=== PATIENT | male | born 1965 | race Caucasian/White ===

== ENCOUNTER 2017-07-04 10:09 | Emergency (ER) | payer OTHER ==
[2017-07-04 10:29] VITALS: BP 137/82
--- NOTE | 2017-07-04 10:52 | UC ---
Throat Pain/Nasal Antwon HPI - HPI Summary HPI Summary: Patient presents with a childhood history of strep throat. He presents today with two day onset of throat pain, fever, generalized body aches and chills. He states Friday night he got up and felt pain on the right side of her throat, and his symptoms has gotten worse since. He has not taken any Advil or Tylenol today. He states he is able to eat and drink but it is painful. He denies any chest pain, dyspnea, abdominal pain, nausea, vomiting or diarrhea. - History of Current Complaint Chief Complaint: UCGeneralIllness Stated Complaint: SORE THROAT, AND EAR ACHE Time Seen by Provider: 07/04/17 10:34 Hx Obtained From: Patient Onset/Duration: Gradual Onset, Lasting Days Severity: Moderate Cough: None Associated Signs & Symptoms: Positive: Fever - Epiglottits Risk Factors Epiglottis Risk Factors: Muffled Voice - Allergies/Home Medications Allergies/Adverse Reactions: Allergies Allergy/AdvReac Type Severity Reaction Status Date / Time Tetracycline Allergy DIZZY Verified 07/04/17 10:29 PMH/Surg Hx/FS Hx/Imm Hx Previously Healthy: Yes - Surgical History Surgical History: Yes Surgery Procedure, Year, and Place: 3 [place] [id number][place] [facility] [place], LEFT FOOT PLANTAR FASCIITIS SURGERY - Family History Known Family History: Positive: None - Social History Occupation: Employed Full-time Lives: Alone Alcohol Use: None Substance Use Type: None Smoking Status (MU): Never Smoked Tobacco Household Exposure Type: Cigarettes - Immunization History Most Recent Influenza Vaccination: 06/2017 Review of Systems Constitutional: Fever, Chills Skin: Negative Eyes: Negative ENT: Sore Throat, Ear Ache Respiratory: Negative Cardiovascular: Negative Gastrointestinal: Negative Genitourinary: Negative Motor: Negative Neurovascular: Negative Musculoskeletal: Negative Neurological: Negative All Other Systems Reviewed And Are Negative: Yes Physical Exam Triage Information Reviewed: Yes Appearance: Ill-Appearing Vital Signs: Initial Vital Signs Temp 102.2 F 07/04/17 10:24 Pulse 125 07/04/17 10:24 Resp 20 07/04/17 10:24 BP 137/82 07/04/17 10:24 Pulse Ox 98 07/04/17 10:24 Vital Signs Reviewed: Yes Eye Exam: Normal ENT Exam: Normal ENT: Positive: Pharyngeal erythema, Tonsillar swelling, Tonsillar exudate, Muffled voice, Uvula midline Neck exam: Normal Neck: Positive: 1 Respiratory Exam: Normal Cardiovascular Exam: Normal Abdominal Exam: Normal Psychological Exam: Normal Skin Exam: Normal Throat Pain/Nasal Course/Dx - Course Course Of Treatment: Patient presents with two day onset sore throat, fever. His clinical findings are consistent with strep throat. His VS reveal fever on 102.2 he has not taken any tylenol or advil today, and he is tacycardic HR 125, which I feel is driven by the fever. He was told to take tylenol alternating with advil every four hours, increase his fluids, and begin penvk 500 mg by mouth four times daily, and I RX decadron 8 mg once. I did not see any signs of tonsillar abcess on exam but I reviewed with the patient that this could develop , should he have more throat pain, increased difficutly swallowing, or at any time cannot swallow his own salive that he would need to go directly to the nearest hospiatl immedicatly. He verbalized understanding of and was in agreement with the discharge plan. - Differential Dx/Diagnosis Differential Diagnosis/HQI/PQRI: Other - strep thoat fever Provider Diagnoses: strep throat. fever Discharge - Discharge Plan Condition: Stable Disposition: HOME Prescriptions: Dexamethasone TAB* [Decadron TAB*] 8 mg PO DAILY #1 tab Penicillin VK 500 MG TAB(NF) [Penicillin VK 500 mg Tab] 500 mg PO QID #40 tab Patient Education Materials: Strep Throat (ED) Referrals: Chris Almendarez MD [Primary Care Provider] - Additional Instructions: I told the patient that if his has worse throat pain, difficulty swallowing, or cannot swallow his own secretions that he would need to go to the ER immediately.
== END 2017-07-04 10:50 | disposition home or self-care (01) ==
LOC: UCEAST 10:09
DX: J02.0 Streptococcal pharyngitis (principal)
CPT/HCPCS: 99212; G0463

== ENCOUNTER 2018-10-24 12:20 | Emergency (ER) | payer BC ==
[2018-10-24 12:36] VITALS: BP 131/84
--- NOTE | 2018-10-24 12:36 | UC ---
FLU HPI - HPI Summary HPI Summary: 53 yo male presents with dry cough, body aches, and fatigue since last night. He tells me that he works at [employer] and has had many sick contacts with flu like symptoms. He has taken ibuprofen and OTC tylenol cold medicine with little relief. Denies fever, SOB, chest pain, abdominal pain, n/v. He did not get a flu shot this year - History of Current Complaint Chief Complaint: UCGeneralIllness Stated Complaint: URI Time Seen by Provider: 10/24/18 12:36 Hx Obtained From: Patient Onset/Duration: Sudden Onset Severity Currently: Moderate Severity Initially: Moderate Pain Intensity: 8 Pain Scale Used: 0-10 Numeric - Allergy/Home Medications Allergies/Adverse Reactions: Allergies Allergy/AdvReac Type Severity Reaction Status Date / Time tetracycline AdvReac Dizziness Verified 10/24/18 12:28 Home Medications: Home Medications Cpm/PE/Dm/Acetaminophen/Guaifn [Tylenol Cold-Flu Day-Nt Caplet] 10/24/18 [ History] PMH/Surg Hx/FS Hx/Imm Hx - Additional Past Medical History Additional PMH: None - Surgical History Surgical History: Yes Surgery Procedure, Year, and Place: 3 LEFT [place]NEE [id number][place] [facility] [place] - [place], LEFT FOOT PLANTAR FASCIITIS SURGERY - Family History Known Family History: Positive: None - Social History Alcohol Use: None Substance Use Type: None Smoking Status (MU): Never Smoked Tobacco Household Exposure Type: Cigarettes - Immunization History Most Recent Influenza Vaccination: 06/2017 Review of Systems All Other Systems Reviewed And Are Negative: Yes Constitutional: Positive: Fatigue, Other - Body aches Skin: Positive: Negative Eyes: Positive: Negative ENT: Positive: Negative Respiratory: Positive: Cough Cardiovascular: Positive: Negative Gastrointestinal: Positive: Negative Neurovascular: Positive: Negative Neurological: Positive: Negative Psychological: Positive: Negative Physical Exam - Summary Physical Exam Summary: GENERAL: NAD. WDWN. No pain distress. SKIN: No rashes, sores, lesions, or open wounds. HEENT: Head: AT/NC Eyes: EOM intact. Conjunctiva clear without inflammation or discharge. Ears: Hearing grossly normal. TMs intact, no bulging, erythema, or edema. Nose: Nasal mucosa pink and moist. NTTP maxillary and frontal sinus. Throat: Posterior oropharynx without exudates, erythema, or tonsillar enlargement. Uvula midline. NECK: Supple. Nontender. No lymphadenopathy. CHEST: CTAB. No r/r/w. No accessory muscle use. Breathing comfortably and in no distress. CV: RRR. Without m/r/g. Pulses intact. Cap refill <2seconds NEURO: Alert. PSYCH: Age appropriate behavior. Triage Information Reviewed: Yes Vital Signs: Initial Vital Signs Temp 99.3 F 10/24/18 12:29 Pulse 99 10/24/18 12:29 Resp 20 10/24/18 12:29 BP 131/84 10/24/18 12:29 Pulse Ox 96 10/24/18 12:29 Laboratory Tests 10/24/18 12:45 Influenza A (Rapid) Positive A Vital Signs Reviewed: Yes Flu Course/Dx - Course Course Of Treatment: POC flu positive. Rx for tamiflu - Differential Dx/Diagnosis Provider Diagnosis: Influenza Discharge - Sign-Out/Discharge Documenting (check all that apply): Patient Departure All imaging exams completed and their final reports reviewed: No Studies - Discharge Plan Condition: Stable Disposition: HOME Prescriptions: Benzonatate CAP* [Tessalon 100 MG CAP*] 100 mg PO TID PRN #21 cap PRN Reason: Cough Oseltamivir CAP* [Tamiflu CAP*] 75 mg PO BID #10 cap Patient Education Materials: Influenza (ED) Referrals: Chris Almendarez MD [Primary Care Provider] - Additional Instructions: If you develop a fever, shortness of breath, chest pain, new or worsening symptoms - please call your PCP or go to the ED. Your blood pressure was high at todays visit. Please see your primary provider within 4 weeks for recheck and re-evaluation. 1) Rest and drink plenty of fluids - Billing Disposition and Condition Condition: STABLE Disposition: Home
[2018-10-24 12:49] LABS: Influenza A Molecular POSITIVE (Negative)
== END 2018-10-24 13:30 | disposition home or self-care (01) ==
LOC: UCEAST 12:20
DX: J10.1 Influenza due to other identified influenza virus with other respiratory manifestations (principal); Z88.1 Allergy status to other antibiotic agents
CPT/HCPCS: 99212; G0463

== ENCOUNTER 2019-08-26 08:07 | Day surgery (SDC) | payer BC, OTHER ==
[~2019-08-26 08:07] MED LIST: Buffered Lidocaine 1% SYRIN* 1 ML/SYRINGE INTRADERM ONE; Dexamethasone IV* 4 MG/ML 1 ML (4 MG) IV SLOW PU ONE; Dexamethasone IV* 4 MG/ML 1 ML (4 MG) ONE; DiMENhydriNATE IV* 50 MG/ML VIAL IV PUSH PRN; Famotidine IV* 10 MG/ML 2 ML (20 mg) IV ONE; Famotidine IV* 10 MG/ML 2 ML (20 mg) ONE; HYDROcodone/ACETAMIN 5-325 MG* 1 TAB PO PRN; Lactated Ringers 1000 ML Bag* 1,000 ML IV SCH; Naloxone* 0.4 MG/ML 1 ML VIAL IV PRN; fentaNYL* 50 MCG/ML 2 ML VIAL (100 MCG VIAL) IV PRN; oxyCODONE/Acetamin 5/325 MG* TAB PO PRN
[2019-08-26] MEDS ORDERED: Midazolam* 1 MG/ML 5 ML VIAL (5 MG) ONE (08:54)
[2019-08-26] MEDS ORDERED: Lidocaine 2% PF * 5 ML VIAL ONE (08:54)
[2019-08-26] MEDS ORDERED: fentaNYL* 50 MCG/ML 2 ML VIAL (100 MCG VIAL) ONE (08:54)
[2019-08-26] MEDS ORDERED: Ketorolac INJ* 30 MG/ML 1 ML VIAL ONE (08:54)
[2019-08-26] MEDS ORDERED: Propofol* 10 MG/ML 20 ML BTL ONE (08:54)
[2019-08-26] MEDS ORDERED: Bupivacaine 0.25% SDV* 30 ML ONE (09:10)
[2019-08-26] MEDS ORDERED: Ondansetron INJ* 2 MG/ML VIAL ONE (09:39)
[2019-08-26 10:57] VITALS: BP 133/96
--- NOTE | 2019-08-26 13:59 | OP ---
DATE OF OPERATION: 08/26/19 [facility] DATE OF : 65 SURGEON: Chris Aguirre MD. ACCOUNTS PAYABLE BOOKKEEPER: JOSEPHINE Garay. ANESTHESIOLOGIST: Dr. Lucio. ANESTHESIA: General. PRE-OP DIAGNOSIS: Left carpal tunnel syndrome. POST-OP DIAGNOSIS: Left carpal tunnel syndrome. OPERATIVE PROCEDURE: Left endoscopic carpal tunnel release. INDICATIONS: Amandeep has the aforementioned carpal tunnel. He presents today for the left side. He understands there is risk associated with this. ESTIMATED BLOOD LOSS: 2 mL. COMPLICATIONS: None. FINDINGS: See above and below. DESCRIPTION OF PROCEDURE: Mr. Almaraz was seen in the preoperative holding area. The correct site, side, and procedure were identified. We came back to the operating room. The arm was prepped and draped in the usual fashion and time- out was performed. The arm was exsanguinated with the Esmarch and the tourniquet inflated to 225 mmHg. I made a 1-cm transverse incision just ulnar to the palmaris longus tendon. The distal antebrachial fascia was spread transversely and a 2-pronged skin hook was placed under the fascia. The carpal tunnel was dilated and then the MicroAire endoscopic carpal tunnel system was introduced. When I had it in the appropriate location, I elevated the blade and the release was carried out from distal to proximal. I then released the distal antebrachial fascia proximally with the tenotomy scissors. Once I had confirmed the release, the wound was irrigated out. The skin was closed with 4-0 Prolene suture and a Steri -Strip. 0.25% Marcaine was infiltrated, a soft dressing was applied, and he was taken to the recovery room in stable condition. [id number]/[facility] #: [id number] MTDD
== END 2019-08-26 10:58 | disposition home or self-care (01) ==
LOC: OREAST 08:07
PROVIDERS: ATTEND Orthopaedic Surgery Hand Surgery
DX: G56.02 Carpal tunnel syndrome, left upper limb (principal); M19.90 Unspecified osteoarthritis, unspecified site; Z85.828 Personal history of other malignant neoplasm of skin
CPT/HCPCS: J1100; J1885; J2250; J2405; J2704; J3010; J3490

== ENCOUNTER 2019-09-16 08:17 | Day surgery (SDC) | payer OTHER ==
[~2019-09-16 08:17] MED LIST changes: -Dexamethasone IV* 4 MG/ML 1 ML (4 MG) IV SLOW PU ONE; -Dexamethasone IV* 4 MG/ML 1 ML (4 MG) ONE; -DiMENhydriNATE IV* 50 MG/ML VIAL IV PUSH PRN; -Famotidine IV* 10 MG/ML 2 ML (20 mg) IV ONE; -Famotidine IV* 10 MG/ML 2 ML (20 mg) ONE; -HYDROcodone/ACETAMIN 5-325 MG* 1 TAB PO PRN; -Naloxone* 0.4 MG/ML 1 ML VIAL IV PRN; -fentaNYL* 50 MCG/ML 2 ML VIAL (100 MCG VIAL) IV PRN; -oxyCODONE/Acetamin 5/325 MG* TAB PO PRN
[2019-09-16] MEDS ORDERED: fentaNYL* 50 MCG/ML 2 ML VIAL (100 MCG VIAL) ONE (08:50)
[2019-09-16] MEDS ORDERED: Midazolam* 1 MG/ML 2 ML VIAL (2 MG) ONE (08:50)
[2019-09-16] MEDS ORDERED: Bupivacaine 0.25% SDV* 30 ML ONE (09:36)
[2019-09-16] MEDS ORDERED: Ondansetron INJ* 2 MG/ML VIAL ONE (09:45)
[2019-09-16] MEDS ORDERED: Dexamethasone IV* 4 MG/ML 1 ML (4 MG) ONE (09:45)
[2019-09-16] MEDS ORDERED: Lidocaine 2% PF * 5 ML VIAL ONE (09:45)
[2019-09-16] MEDS ORDERED: Propofol* 10 MG/ML 20 ML BTL ONE (09:45)
[2019-09-16] MEDS ORDERED: Ketorolac INJ* 30 MG/ML 1 ML VIAL ONE (09:45)
[2019-09-16] MEDS ORDERED: Naloxone* 0.4 MG/ML 1 ML VIAL IV PRN (10:00)
[2019-09-16] MEDS ORDERED: Acetaminophen TAB* 325 MG PO PRN (10:00)
[2019-09-16] MEDS ORDERED: PROCHLORPERAZINE INJ 5 MG/ML 2 ML VIAL IV PRN (10:00)
[2019-09-16] MEDS ORDERED: EPHEDrine (Pressors)* 50 MG/ML VIAL ONE (10:47)
[2019-09-16 11:02] VITALS: BP 127/78
--- NOTE | 2019-09-16 17:11 | OP ---
DATE OF OPERATION: 09/16/19 [facility] DATE OF : 65 SURGEON: Chris Aguirre MD. COLLECTION OFFICER: JOSEPHINE Garay. ANESTHESIOLOGIST: Dr. Mcdermott. ANESTHESIA: General. PRE-OP DIAGNOSIS: Right carpal tunnel syndrome. POST-OP DIAGNOSIS: Right carpal tunnel syndrome. OPERATIVE PROCEDURE: Right endoscopic carpal tunnel release. INDICATIONS: Mr. Almaraz has the carpal tunnel. We have done the left side. He now presents for the right side. He understands the risks associated with this. ESTIMATED BLOOD LOSS: 2 mL. COMPLICATIONS: None. FINDINGS: See above and below. DESCRIPTION OF PROCEDURE: Mr. Almaraz was seen in the preoperative holding area. The correct site, side, and procedure were identified. We came back to the operating room. The arm was prepped and draped in the usual fashion and a time- out was performed. The arm was exsanguinated with the Esmarch and the tourniquet was inflated to 225 mmHg. I made a 1 cm incision just ulnar to the palmaris longus tendon. Dissection was carried down. The distal antebrachial fascia was split transversely with the tenotomy scissors. A two-prong skin hook was placed underneath this. The carpal tunnel was dilated. The MicroAire endoscopic carpal tunnel system was introduced. When it was it in the appropriate location , I elevated the blade and the release was carried out from distal to proximal. Once I had confirmed the release distally, I released the distal antebrachial fascia proximally with the tenotomy scissors. At this point, everything was looking good. The nerve was very nicely decompressed. The wound was irrigated out and closed with 4-0 Prolene suture and a Steri-Strip. 0.25% Marcaine was infiltrated. A soft dressing was applied and he was taken to the recovery room in stable condition. [id number]/[facility] #: [id number] [id number]
== END 2019-09-16 11:13 | disposition home or self-care (01) ==
LOC: OREAST 08:17
PROVIDERS: ATTEND Orthopaedic Surgery Hand Surgery
DX: G56.01 Carpal tunnel syndrome, right upper limb (principal); M19.90 Unspecified osteoarthritis, unspecified site; Z85.828 Personal history of other malignant neoplasm of skin
CPT/HCPCS: J1100; J1885; J2250; J2405; J2704; J3010; J3490